=== PATIENT | male | born 1945 | race Caucasian/White ===

== ENCOUNTER 2019-02-13 13:37 | Emergency (ER) | payer SELFPAY ==
[~2019-02-13] VITALS: Ht 165.1 cm; Wt 67.1 kg
--- NOTE | 2019-02-13 13:47 | NUR ---
Pt placed in bed 9 by EMS.
[2019-02-13 13:59] VITALS: BP 140/44
--- NOTE | 2019-02-13 14:10 | NUR ---
DOCTOR CHOI AT BEDSIDE EVALUATING PATIENT
[2019-02-13 15:47] LABS: BASOPHILS # (AUTO) 0.1 K/uL (0.00-0.22); BASOPHILS % (AUTO) 0.9 % (0.0-2.0); EOSINOPHILS # (AUTO) 0.3 K/uL (0-0.4); EOSINOPHILS % (AUTO) 4.3 % (0.0-4.0); HEMATOCRIT 34.6 % (36-52); LYMPHOCYTES % (AUTO) 28.7 % (20.5-51.1); MEAN CORPUSCULAR HEMOGLOBIN 29 pg (27-31); MEAN CORPUSCULAR HGB CONC 32 g/dL (33-37); MEAN CORPUSCULAR VOLUME 91.3 fL (80-94); MONOCYTES # (AUTO) 0.6 K/uL (0.8-1.0); MONOCYTES % (AUTO) 8.9 % (1.7-9.3); NEUTROPHILS # (AUTO) 4.1 K/uL (1.8-7.7); NEUTROPHILS % (AUTO) 57.2 % (42.2-75.2); PLATELET COUNT (AUTO) 275 K/uL (140-450); RED BLOOD CELL COUNT(AUTO) 3.79 MIL/uL (4.20-6.10); RED CELL DISTRIBUTION WIDTH 19.5 % (11.6-13.7); WHITE BLOOD COUNT (AUTO) 7.1 K/uL (4.8-10.8)
--- NOTE | 2019-02-13 16:00 | NUR ---
BIBA W C/O SYNCOPE AFTER REACHING DOWN TO PICK SOMETHING UP WHILE IN A SEATED POSITION. PT STATES HE FEELS "NORMAL" NOW. HX OF RENAL FAILURE, SHUNT TO L UPPER ARM T//SAT., LAST HD YESTERDAY 02/12/19. PT DENIES N/V/SOB/CP AT THIS TIME. PT RESTING IN BED, AND DAUGHTER AT BEDSIDE. SIDE RAIL UP X1.
[2019-02-13 16:16] LABS: ANION GAP 14.6 (8-16); ASPARTATE AMINOTRANSFERASE 22 U/L (15-37); CARBON DIOXIDE 29.3 mmol/L (21-32); CHLORIDE 100 mmol/L (98-107); GLUCOSE 122 mg/dL (74-106); POTASSIUM 3.9 mmol/L (3.5-5.1); SODIUM SERUM 140 mmol/L (136-145); TOTAL BILIRUBIN 0.4 mg/dL (0.0-1.0); UREA NITROGEN, BLOOD 29 mg/dL (7-18)
[2019-02-13 16:17] LABS: CREATININE 5.3 mg/dL (0.7-1.3)
--- NOTE | 2019-02-13 17:13 | NUR ---
Patient discharged with v/s stable. Written and verbal after care instructions given ABOUT PRE-SYNCOPE and explained TO PATIENT AND . Patient verbalized understanding. Ambulatory with steady gait. All questions addressed prior to discharge. Advised to follow up with PMD. PATIENT INSTRUCTED TO NOTIFY DIALYSIS PROVIDER ABOUT THIS EVENT
[2019-02-13 17:14] VITALS: BP 139/44
== END 2019-02-13 17:13 | disposition home or self-care (01) ==
LOC: MED 13:37
DX: R55 Syncope and collapse (principal); I10 Essential (primary) hypertension; Z87.448 Personal history of other diseases of urinary system
CPT/HCPCS: 36415; 71045; 80053; 84484; 85025; 93005; 99284; Q0092